=== PATIENT | female | born 1950 | race Caucasian/White ===

== ENCOUNTER → 2021-06-16 | Outpatient (CLI) | payer MEDICARE ==
[~2021-06-16] MED LIST: LEVAQUIN750 MG PO; LISINOPRIL10 MG PO; NORVASC 5 MG TAB5 MG PO
== END ==
LOC: EXRD 04-10 10:30 → MAMO 04-10 10:30
DX: Z12.31 Encounter for screening mammogram for malignant neoplasm of breast (principal); Z90.710 Acquired absence of both cervix and uterus; M81.0 Age-related osteoporosis without current pathological fracture
CPT/HCPCS: 77063; 77067; 77080

== ENCOUNTER 2022-02-12 09:47 | Emergency (ER) | payer MEDICARE ==
[2022-02-12 10:50] LABS: HEMOGLOBIN 15.7 gm/dl (12.3-15.3); RED BLOOD COUNT 5.39 M/UL (4.00-5.10); WHITE BLOOD COUNT 10.4 K/UL (4.5-11.0)
[2022-02-12 11:19] LABS: BUN/CREATININE RATIO 17 (0-10)
[2022-02-12] MEDS ORDERED: ZOFRAN ODT 4 MG4 MG PO (13:31)
== END 2022-02-12 13:56 | disposition home or self-care (01) ==
LOC: ER1 09:47
PROVIDERS: Family Medicine
DX: I10 Essential (primary) hypertension (principal); E87.6 Hypokalemia; E11.9 Type 2 diabetes mellitus without complications; R11.0 Nausea; Z20.822 Contact with and (suspected) exposure to COVID-19
CPT/HCPCS: 0240U; 80053; 81001; 82009; 82550; 82553; 82962; 84484; 85025; 93005; 99283